=== PATIENT | male | born 1965 | race Caucasian/White ===

== ENCOUNTER 2016-12-25 08:16 | Emergency (ER) | payer BC ==
[~2016-12-25] VITALS: Ht 182.9 cm; Wt 83.9 kg
[~2016-12-25 08:16] MED LIST: NKM
[2016-12-25] MEDS ORDERED: Tubing IV Cassette IV ONE (08:25)
[2016-12-25] MEDS ORDERED: Metoclopramide 10mg/2ml Inj ONE (08:25)
--- NOTE | 2016-12-25 08:25 | Emergency Room Report ---
History of Present Illness General Chief Complaint: Vomiting Source: Patient, EMS Present Illness HPI Patient started vomiting yesterday. He was able to sleep last night but woke up and had episodes of vomiting. He went to work and also vomited at work. He started feeling tingling in his hands and feet. He also had weakness and shortness of breath with muscle tightness of hands and feet. Paramedics performed an EKG on the way in which was sinus rhythm. Also administered Zofran 4 mg the patient. He was drinking alcohol over the weekend. Got tipsy Saturday. No headache, fever, chest pain, productive cough, anxiety/depression, dysuria, hematuria, joint pain. No diarrhea with normal BMs. Allergies: Coded Allergies: No Known Allergies (Unverified , 12/25/16) Patient History Past Medical History: see triage record Social History: Reports: alcohol use Social History Narrative [employer]IST finances, fiancee and son Reviewed Nursing Documentation: PMH: Agreed, PSxH: Agreed Nursing Documentation-PMH Past Medical History: No History, Except For Hx Cancer: Yes - PROSTATED Review of Systems All Other Systems: negative except mentioned in HPI Physical Exam Vital Signs Date Time Temp Pulse Resp B/P Pulse Ox O2 Delivery O2 Flow Rate FiO2 12/25/16 08:10 72 32 138/88 100 Room Air Sp02 EP Interpretation: reviewed, normal General Appearance: GCS 15, non-toxic, mild distress Head: normocephalic Eyes: bilateral eye PERRL, bilateral eye normal inspection ENT: moist mucus membranes Neck: supple Respiratory: lungs clear, normal breath sounds Cardiovascular #1: regular rate, rhythm Cardiovascular #2: 2+ radial (R) Gastrointestinal: normal inspection, normal bowel sounds, non tender, no mass, non-distended, other - vomiting Musculoskeletal: back normal, gait/station normal, normal range of motion Neurologic: alert, oriented x3, 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 Differential includes gastroenteritis, food poisoning, gastritis with hyperventilation amongst others. Evaluation will be with EKG, labs a. This will be treated IV hydration, Ativan, Pepcid and Reglan with Benadryl. EKG, nssttw changes. Labs with slight inc WBC and dec K+. Improved with treatment. No more vomit and tolerating PO. Sleeping. Ambulates normally. Patient stable for outpatient observation and treatment. Laboratory Tests Test 12/25/16 09:00 White Blood Count 11.4 K/UL (4.8-10.8) H Red Blood Count 5.43 M/UL (4.70-6.10) Hemoglobin 16.2 G/DL (14.2-18.0) Hematocrit 47.6 % (42.0-52.0) Mean Corpuscular Volume 88 FL (80-99) Mean Corpuscular Hemoglobin 29.8 PG (27.0-31.0) Mean Corpuscular Hemoglobin Concent 34.0 G/DL (32.0-36.0) Red Cell Distribution Width 11.2 % (11.6-14.8) L Platelet Count 321 K/UL (150-450) Mean Platelet Volume 7.2 FL (6.5-10.1) Neutrophils (%) (Auto) 77.9 % (45.0-75.0) H Lymphocytes (%) (Auto) 11.7 % (20.0-45.0) L Monocytes (%) (Auto) 9.5 % (1.0-10.0) Eosinophils (%) (Auto) 0.3 % (0.0-3.0) Basophils (%) (Auto) 0.6 % (0.0-2.0) Sodium Level 141 mEQ/L (135-145) Potassium Level 3.1 mEQ/L (3.4-4.9) L Chloride Level 96 mEQ/L (98-107) L Carbon Dioxide Level 20 mEQ/L (20-30) Anion Gap 25 (5-15) H Blood Urea Nitrogen 9 mg/dL (7-23) Creatinine 1.1 mg/dL (0.7-1.2) Estimate Glomerular Filtration Rate > 60 mL/min (>60) Glucose Level 153 mg/dL (74-106) H Calcium Level 10.0 mg/dL (8.6-10.2) Total Bilirubin 1.3 mg/dL (0.0-1.2) H Direct Bilirubin 0.2 mg/dL (0.1-0.3) Aspartate Amino Transferase (AST) 19 U/L (5-40) Alanine Aminotransferase (ALT) 15 U/L (3-41) Alkaline Phosphatase 65 U/L (40-129) Troponin I < 0.30 ng/mL (<=0.30) Total Protein 7.7 g/dL (6.6-8.7) Albumin 4.8 g/dL (3.5-5.2) Globulin 2.9 g/dL Albumin/Globulin Ratio 1.6 (1.0-2.7) Lipase 28 U/L (< 60) EKG Diagnostic Results Rate: normal Rhythm: NSR ST Segments: no acute changes Rhythm Strip Diag. Results EP Interpretation: yes Rhythm: NSR, no PVC's, no ectopy Chest X-Ray Diagnostic Results Chest X-Ray Ordered: Yes # of Views/Limited/Complete: 1 View EP Interpretation: Yes Interpretation: no consolidation, no effusion, no pneumothorax, no acute cardiopulmonary disease Indication: Other Impression: No acute disease Interpreting ER Provider: dhaval Last Vital Signs Date Time Temp Pulse Resp B/P Pulse Ox O2 Delivery O2 Flow Rate FiO2 12/25/16 13:10 62 16 118/72 100 Room Air Status: improved Disposition: HOME, SELF-CARE Condition: Improved Scripts Famotidine (PEPCID) 20 Mg Tablet 20 MG ORAL DAILY, #30 TAB 0 Refills Prov: Miguel Jacobs M.D. 12/25/16 Ondansetron Odt* (ZOFRAN ODT*) 4 Mg Tab.rapdis 4 MG ORAL Q6H Y for Nausea & Vomiting, #6 TAB 0 Refills Prov: Miguel Jacobs M.D. 12/25/16 Miguel Jacobs M.D. Dec 25, 2016 08:25
[2016-12-25] MEDS ORDERED: Metoclopramide 10mg/2ml Inj IVP ONE (08:30)
[2016-12-25] MEDS ORDERED: DiphenhydrAMINE 50mg/ml Inj IVP ONE (08:30)
[2016-12-25] MEDS ORDERED: Famotidine 20 MG/ 2ML VIAL IVP ONE (08:30)
[2016-12-25] MEDS ORDERED: LORazepam Inj 2mg/ml 1ml IV ONE (08:30)
[2016-12-25 09:00] VITALS: BP 125/81
[2016-12-25 09:14] LABS: BASOPHILS % (AUTO) 0.6 % (0.0-2.0); EOSINOPHILS % (AUTO) 0.3 % (0.0-3.0); LYMPHOCYTES % (AUTO) 11.7 % (20.0-45.0); MEAN CORPUSCULAR HEMOGLOBIN 29.8 PG (27.0-31.0); MEAN CORPUSCULAR VOLUME 88 FL (80-99); MEAN PLATELET VOLUME 7.2 FL (6.5-10.1); MONOCYTES % (AUTO) 9.5 % (1.0-10.0); NEUTROPHILS % (AUTO) 77.9 % (45.0-75.0); PLATELET COUNT 321 K/UL (150-450); RED BLOOD COUNT 5.43 M/UL (4.70-6.10); RED CELL DISTRIBUTION WIDTH 11.2 % (11.6-14.8); WHITE BLOOD COUNT 11.4 K/UL (4.8-10.8)
[2016-12-25 09:20] LABS: ALANINE AMINOTRANSFERASE 15 U/L (3-41); ALBUMIN/GLOBULIN RATIO 1.6 (1.0-2.7); ANION GAP 25 (5-15); ASPARTATE AMINO TRANSFERASE 19 U/L (5-40); CARBON DIOXIDE 20 mEQ/L (20-30); CHLORIDE 96 mEQ/L (98-107); CREATININE 1.1 mg/dL (0.7-1.2); GLOMERULAR FILTRATION RATE > 60 mL/min (>60); HEMOLYSIS 3; LIPASE 28 U/L (< 60); POTASSIUM 3.1 mEQ/L (3.4-4.9); SODIUM 141 mEQ/L (135-145); TOTAL PROTEIN 7.7 g/dL (6.6-8.7); TROPONIN I < 0.30 ng/mL (<=0.30)
--- NOTE | 2016-12-25 09:24 | Diagnostic Imaging Report ---
Indication: DYSPNEA Technique: Single portable AP view of the chest. Findings: Comparison: None. The bones and extra pulmonary soft tissues, cardiomediastinal silhouette, pulmonary vasculature and parenchyma, and pleural surfaces are unremarkable. IMPRESSION: Negative portable AP chest.
[2016-12-25 09:32] LABS: BILIRUBIN,DIRECT 0.2 mg/dL (0.1-0.3)
[2016-12-25 10:00] VITALS: BP 119/72
[2016-12-25 12:00] VITALS: BP 118/72
[2016-12-25] MEDS ORDERED: PEPCID20 MG ORAL (12:06)
[2016-12-25] MEDS ORDERED: ZOFRAN ODT4 MG ORAL (12:06)
[2016-12-25 13:10] VITALS: BP 118/72
== END 2016-12-25 13:10 | disposition home or self-care (01) ==
LOC: EDBD 08:16 → EMR 09:18
DX: R11.10 Vomiting, unspecified (principal); R06.4 Hyperventilation; Z85.46 Personal history of malignant neoplasm of prostate
CPT/HCPCS: 36415; 71010; 80053; 82248; 83690; 84484; 85025; 93005; 96360; 96374; 96375; 99284; J1200; J2765; S0028